=== PATIENT | female | born 1955 | race Two or more races ===

== ENCOUNTER 2022-05-24 21:12 | Inpatient (IN) | payer SELFPAY ==
[~2022-05-24] VITALS: Ht 162.6 cm; Wt 49.9 kg
[~2022-05-24 21:12] MED LIST: CEFAZOLIN 1 G VIAL ONE; DEXAMETHASONE SOD PHOSPHATE 4 MG INJ ONE; KETOROLAC TROMETHAMINE 30 MG INJ ONE; LIDOCAINE-MPF 2% 5 ML VIAL ONE; ONDANSETRON 4 MG/2 ML VIAL ONE; PROPOFOL 200 MG/20 ML BOTTLE ONE
[2022-05-24] MEDS ORDERED: KETOROLAC TROMETHAMINE 15 MG INJ IVP ONE (21:30)
[2022-05-24 22:02] LABS: HEMATOCRIT 34.2 % (31.2-41.9); MEAN CORPUSCULAR HEMOGLOBIN 30.2 uug (24.7-32.8); MEAN CORPUSCULAR VOLUME 89.7 fL (75.5-95.3); PLATELET COUNT (AUTO) 239 K/uL (179-408)
[2022-05-24 22:14] LABS: BILIRUBIN,DIRECT 0.2 mg/dL (0.0-0.2); BILIRUBIN,TOTAL 0.5 mg/dL (0.2-1.0); CREATININE 0.8 mg/dL (0.6-1.3); POTASSIUM 3.9 mmol/L (3.5-5.1); TOTAL PROTEIN, SERUM 6.9 g/dL (6.4-8.2)
[2022-05-24] MEDS ORDERED: FENTANYL CITRATE 100 MCG/2 ML AMPUL IV ONE (22:15)
[2022-05-24] MEDS ORDERED: PROPOFOL 1,000 MG/100 ML BOTTLE IV ONE (22:15)
[2022-05-24] MEDS ORDERED: FENTANYL CITRATE 100 MCG/2 ML AMPUL ONE (22:31)
[2022-05-24] MEDS ORDERED: KETOROLAC TROMETHAMINE 15 MG INJ ONE (22:31)
[2022-05-24] MEDS ORDERED: PROPOFOL 200 MG/20 ML BOTTLE ONE (22:31)
[2022-05-24 22:41] LABS: *BILIRUBIN,URIN NEGATIVE (NEGATIVE); *BLOOD, URINE NEGATIVE (NEGATIVE); *CLARITY,URINE CLEAR (CLEAR); *COLOR,URINE YELLOW (YELLOW); *KETONES,URINE NEGATIVE (NEGATIVE); *UROBILINOGEN,URINE 0.2 E.U./dl (NORMAL); LEUKOCYTE ESTERASE ,URINE NEGATIVE (NEGATIVE); NITRITE, URINE NEGATIVE (NEGATIVE); UGLUCOSE NEGATIVE (NEGATIVE)
--- NOTE | 2022-05-24 22:47 | NUR ---
called [facility] for panel admission, jostin ybarra information management officer.
[2022-05-24] MEDS ORDERED: ONDANSETRON 4 MG/2 ML VIAL IV PRN (23:30)
[2022-05-24] MEDS ORDERED: REMEDY ESSENTIAL ZINC PASTE 113 GM TP PRN (23:30)
[2022-05-24] MEDS ORDERED: ACETAMINOPHEN 325 MG TABLET PO PRN (23:30)
[2022-05-24] MEDS ORDERED: MAGNESIUM HYDROXIDE 30 ML LIQUID UDC PO PRN (23:30)
[2022-05-24] MEDS ORDERED: PHYTONADIONE 10 MG/1 ML AMPUL SQ ONE (23:45)
[2022-05-25] MEDS ORDERED: ENOXAPARIN SODIUM 40 MG/0.4 ML DISP.SYRIN SQ SCH (01:10)
[2022-05-25] MEDS: IV NS 1000 ML 1,000 ML IV PRN ×2 (01:40→20:40)
[2022-05-25 01:49] VITALS: BP 147/59
[2022-05-25] MEDS: MORPHINE SULFATE 2 MG/1 ML DISP.SYRIN IV PRN ×2 (02:37→20:39)
[2022-05-25 04:06] VITALS: BP 124/55
--- NOTE | 2022-05-25 04:48 | NUR ---
Patient admission from ER per [facility] with diagnosis left femur fracture and left distal radial and ulnar fracture d/t s/p fall on the street. left arm short splint intact. AAOX4, no sob, Blair catheter to gravity.
[2022-05-25 06:22] LABS: MEAN CORPUSCULAR VOLUME 89.7 fL (75.5-95.3); PLATELET COUNT (AUTO) 180 K/uL (179-408)
[2022-05-25 06:34] LABS: CREATININE 0.6 mg/dL (0.6-1.3); MAGNESIUM 1.8 mg/dL (1.8-2.4); PHOSPHOROUS 3.7 mg/dL (2.5-4.9); POTASSIUM 3.6 mmol/L (3.5-5.1)
[2022-05-25 12:15] VITALS: BP 123/56
[2022-05-25 13:17] LABS: THYROID STIMULATING HORMONE 0.84 mIU/mL (0.358-3.740)
[2022-05-25 16:12] VITALS: BP 139/60
[2022-05-25 20:03] VITALS: BP 147/66
[2022-05-26 04:08] VITALS: BP 146/69
[2022-05-26] MEDS ORDERED: VANCOMYCIN 1000 MG VIAL ONE ×2 (06:41→09:13)
[2022-05-26] MEDS ORDERED: HYDROMORPHONE 2 MG/1 ML DISP.SYRIN ONE (07:25)
[2022-05-26] MEDS ORDERED: BUPIVACAINE/EPI PF 0.25% 10 ML VIAL IJ ONE (08:51)
[2022-05-26] MEDS ORDERED: ENOXAPARIN SODIUM 40 MG/0.4 ML DISP.SYRIN SQ SCH (09:00)
[2022-05-26] MEDS ORDERED: BUPIVACAINE/EPI PF 0.5% 10 ML VIAL ONE (09:13)
[2022-05-26] MEDS ORDERED: MORPHINE SULFATE 2 MG/1 ML DISP.SYRIN IV PRN (10:30)
[2022-05-26] MEDS ORDERED: HYDROCODONE/APAP 10-325 MG TABLET PO PRN (10:30)
--- NOTE | 2022-05-26 11:09 | NUR ---
Pt received from OR after her surgery by Dr Engel today (ORIF left distal femur fracture and radial). Pt is alert and oriented in bed with her daughter at bedside. Patient is smiling, has no pain at the moment.
[2022-05-26 11:50] VITALS: BP 128/58
[2022-05-26 12:04] VITALS: BP 122/57
--- NOTE | 2022-05-26 12:57 | NUR ---
Swallow eval was done by me at bedside and patient could swallow water very well. She was hungry and is having lunch now. Her daughter is at bedside. I will continue to monitor
[2022-05-26] MEDS: IV D5W-0.45% NS +20 KCL 1,000 ML IV PRN (16:10)
[2022-05-26 16:23] VITALS: BP 140/57
[2022-05-26] MEDS: CEFAZOLIN 1 G in IV DEXTROSE 5% 50 ML IV SCH (16:39)
[2022-05-26 20:00] VITALS: BP 115/47
--- NOTE | 2022-05-26 20:00 | NUR ---
Patient alert oriented, no complain of pain at this time, left lower arm with cast, cast clean, left hip with dressing, dressing intact and clean, cont on abx plus hydration. given incentive inspirometer and taught how to use it. Patient alert able to follow, will continue to encourage to use it. cont to monitor.
[2022-05-27] MEDS: CEFAZOLIN 1 G in IV DEXTROSE 5% 50 ML IV SCH (00:20)
--- NOTE | 2022-05-27 00:45 | NUR ---
Patient complain of 8/10 hip pain, reguesting pain meds, will medicate for pain, patient sleepy refuse to use IS at this time, cont to monitor.
[2022-05-27 04:00] VITALS: BP 123/58
--- NOTE | 2022-05-27 04:33 | NUR ---
Patient awake vital sign done by [employer], encourage to use the IS, continue to encourage to use the IS. no complain of pain. at this time. juárez cath patent draining yellow color urine in moderate amount, kept heels elevated, cont to monitor.
[2022-05-27 06:45] LABS: HEMATOCRIT 24.6 % (31.2-41.9); MEAN CORPUSCULAR HEMOGLOBIN 31.2 uug (24.7-32.8); MEAN CORPUSCULAR VOLUME 92.6 fL (75.5-95.3); PLATELET COUNT (AUTO) 159 K/uL (179-408)
[2022-05-27 07:00] LABS: CREATININE 0.6 mg/dL (0.6-1.3); POTASSIUM 4.2 mmol/L (3.5-5.1)
[2022-05-27] MEDS: ENOXAPARIN SODIUM 40 MG/0.4 ML DISP.SYRIN SQ SCH (08:26)
[2022-05-27] MEDS: IV D5W-0.45% NS +20 KCL 1,000 ML IV PRN ×2 (08:28→22:43)
[2022-05-27 12:01] VITALS: BP 127/51
[2022-05-27] MEDS: ENSURE ENLIVE (VAN) 240 ML LIQUID PO SCH (14:45)
[2022-05-27 15:47] VITALS: BP 133/46
[2022-05-27 20:00] VITALS: BP 142/62
--- NOTE | 2022-05-27 20:00 | NUR ---
RECD AWAKE, ALERT X 4, RESTING IN BED, USING INCENTIVE SPIROMETER, IVF INFUSING WELL , NO CUTE DISTRESS NOTED.WHITLOCK CATH PATENT AND DRAINING WELL TO MICHAEL URINE.
--- NOTE | 2022-05-27 21:15 | NUR ---
REQUESTED TYLENOL 650 MG FOR MILD PAIN AROUND OPERATIVE SITES. REPOSITIONED FOR COMFORT, CIRCULATORY CHECK W/I NORMAL LIMITS, ABLE TO WIGGLE FINGERS , ICE PACK TO OP SITE APPLIED. SLEPT INTERMITTENTLY.
[2022-05-28 06:43] VITALS: BP 139/53
[2022-05-28] MEDS: ENSURE ENLIVE (VAN) 240 ML LIQUID PO SCH (08:25)
[2022-05-28] MEDS: ENOXAPARIN SODIUM 40 MG/0.4 ML DISP.SYRIN SQ SCH (08:25)
--- NOTE | 2022-05-28 09:00 | NUR ---
pt ao x 4. no sob; no acute distress noted; no pain complain; pt is relaxing on bed comfortably
[2022-05-28] MEDS ORDERED: APIX2.5T PO (10:12)
[2022-05-28] MEDS ORDERED: ACET325T53 PO (10:12)
[2022-05-28 11:55] VITALS: BP 119/51
--- NOTE | 2022-05-28 13:35 | NUR ---
pt will be discharge to home. notified daughter.
--- NOTE | 2022-05-28 13:42 | NUR ---
removed juárez cath.
--- NOTE | 2022-05-28 15:36 | NUR ---
pt have not voided yet. 305ml residual on bladder scan. will reassess in 1 hr
[2022-05-28 15:47] VITALS: BP 144/67
--- NOTE | 2022-05-28 16:47 | NUR ---
pt voided significant amount on diaper.
[2022-05-28] MEDS ORDERED: MAGNESIUM HYDROXIDE 30 ML LIQUID UDC PO PRN (17:00)
== END 2022-05-28 17:55 | disposition home health service (06) | DRG 481 ==
LOC: ER 21:15 → MEDSURG3 22:52 → EDBD 22:52
PROVIDERS: ADMIT Internal Medicine
PROC: 0QS706Z Reposition Left Upper Femur with Intramedullary Internal Fixation Device, Open Approach (ICD-10-PCS; principal; 2022-05-26)
PROC: 0PSJ04Z Reposition Left Radius with Internal Fixation Device, Open Approach (ICD-10-PCS; 2022-05-26)
DX: M80.052A Age-related osteoporosis with current pathological fracture, left femur, initial encounter for fracture (principal); D68.59 Other primary thrombophilia; M80.032A Age-related osteoporosis with current pathological fracture, left forearm, initial encounter for fracture; M19.90 Unspecified osteoarthritis, unspecified site; Z74.09 Other reduced mobility; Z20.822 Contact with and (suspected) exposure to COVID-19; W19.XXXA Unspecified fall, initial encounter; Y93.9 Activity, unspecified; Y92.488 Other paved roadways as the place of occurrence of the external cause; D64.9 Anemia, unspecified; R03.0 Elevated blood-pressure reading, without diagnosis of hypertension
CPT/HCPCS: 36415; 51702; 71045; 72170; 73100; 73110; 73502; 83550; 83735; 84100; 84443; 84484; 85025; 85730; 86850; 86900; 86901; 93005; 93307; A4649; A4663; A6209; C1713; G0378; J0690; J1100; J1170; J1650; J1885; J2270; J2405; J3010; J3370; J3490; J7040